=== PATIENT | female | born 1990 | race Two or more races ===

== ENCOUNTER 2023-08-27 17:30 | Emergency (ER) | payer OTHER ==
[~2023-08-27] VITALS: Ht 162.6 cm; Wt 84.8 kg
[2023-08-27] MEDS ORDERED: KETOROLAC TROMETHAMINE 30 MG VIAL IV ONE (18:00)
[2023-08-27] MEDS ORDERED: CEFTRIAXONE SODIUM 2,000 MG VIAL IV ONE (18:00)
[2023-08-27 18:32] LABS: HEMATOCRIT 35.7 % (36.0-45.00); HEMOGLOBIN 11.9 g/dL (12.0-15.00); MEAN CORPUSCULAR HEMOGLOBIN 28.6 pg (27.00-32.0); MEAN CORPUSCULAR HGB CONC 33.3 g/dl (32.0-36.0); PLATELET COUNT 223 K/uL (150-450); RED BLOOD COUNT 4.15 M/uL (4.00-6.00); RED CELL DISTRIBUTION WIDTH 14.3 % (11.5-14.5)
[2023-08-27 18:40] LABS: PH,URINE 6.5 (5.0-8.0); URINE APPEARANCE Clear; URINE BILIRRUBIN Negative (NEGATIVE); URINE BLOOD Trace; URINE COLOR Yellow; URINE GLUCOSE Negative (NEGATIVE); URINE LEUKOCYTE Small; URINE NITRATE Negative; URINE PROTEIN Negative (NEGATIVE); URINE UROBILINOGEN 0.2 E.U./dl
[2023-08-27 18:42] LABS: URINE EPITHELIAL CELLS 15.2 uL (0.0-38.8); URINE RBC 4.3 uL (0.0-20.8); URINE WBC 129.4 uL (0.0-23.2)
[2023-08-27 19:05] LABS: ALBUMIN 3.3 gm/dL (3.4-5.0); BILIRUBIN TOTAL 0.55 mg/dL (0.3-1.2); CALCIUM 9.3 mg/dL (8.5-10.1); CREATININE SERUM 0.81 mg/dL (0.55-1.02); GFR 80.94; GLOBULINA 5.4 G/DL (2.4-3.5); POTASSIUM 4.11 mEq/L (3.5-5.1); TOTAL PROTEIN 8.7 gm/dL (6.4-8.2)
[2023-08-27] MEDS ORDERED: TAMSULOSIN HCL 0.4 MG CAP PO ONE (19:45)
[2023-08-27] MEDS ORDERED: HYOSCYAMINE SULFATE 0.125 MG TAB.SUBL SL ONE (19:45)
== END 2023-08-27 22:38 | disposition home or self-care (01) ==
LOC: ER 17:30
PROVIDERS: General Practice
DX: N39.0 Urinary tract infection, site not specified (principal); R10.9 Unspecified abdominal pain; J45.909 Unspecified asthma, uncomplicated

== ENCOUNTER 2024-03-05 09:27 | Emergency (ER) | payer OTHER ==
[~2024-03-05] VITALS: Ht 162.6 cm; Wt 83.9 kg
[2024-03-05 09:40] VITALS: BP 106/72; O2SAT 100
[2024-03-05] MEDS ORDERED: CEFTRIAXONE SODIUM 1,000 MG VIAL IM STA (11:37)
[2024-03-05] MEDS ORDERED: METHYLPREDNISOLONE SOD SUCC 125 MG VIAL IM STA (11:37)
[2024-03-05] MEDS ORDERED: METHYLPREDNISOLONE SOD SUCC 125 MG VIAL ONE (12:09)
[2024-03-05] MEDS ORDERED: CEFTRIAXONE SODIUM 1,000 MG VIAL ONE (12:09)
== END 2024-03-05 12:27 | disposition home or self-care (01) ==
LOC: ER 09:28
DX: J06.9 Acute upper respiratory infection, unspecified (principal); Z20.822 Contact with and (suspected) exposure to COVID-19

== ENCOUNTER 2025-06-19 09:23 | Emergency (ER) | payer OTHER ==
[~2025-06-19] VITALS: Ht 162.6 cm; Wt 72.6 kg
[2025-06-19] MEDS ORDERED: DEXAMETHASONE SODIUM PHOSPHATE 4 MG/ML VIAL IV ONE (09:45)
[2025-06-19] MEDS ORDERED: KETOROLAC TROMETHAMINE 30 MG VIAL IU ONE (09:45)
[2025-06-19] MEDS ORDERED: LIDOCAINE HCL VISCOUS 20MG/ML BLIST 15ML MM ONE (09:45)
[2025-06-19] MEDS ORDERED: 0.9 % SODIUM CHLORIDE 500 ML IV ONE (09:45)
[2025-06-19] MEDS ORDERED: CEFTRIAXONE SODIUM 1,000 MG VIAL IV ONE (09:45)
[2025-06-19] MEDS ORDERED: DEXAMETHASONE SODIUM PHOSPHATE 4 MG/ML VIAL ONE (10:02)
[2025-06-19] MEDS ORDERED: KETOROLAC TROMETHAMINE 30 MG VIAL ONE (10:02)
[2025-06-19 11:14] LABS: BASO % 0.6 % (0.1-1.2); EOS # 0.08 (0.04-0.54); EOS % 0.6 % (0.7-7.0); LYMPH # 2.58 (1.18-3.74); LYMPH % 20.0 % (19.3-53.1); MEAN PLATELET VOLUME 11.30 fl (9.4-12.4); MONO # 1.01 (0.24-0.82); MONO % 7.8 % (4.7-12.5); NEUT # 9.08 (1.56-6.13); NEUT % 70.5 % (34.0-71.1); RED CELL DISTRIBUTION WIDTH 13.5 % (11.6-14.4)
[2025-06-19 11:30] LABS: COVID-19 AG NEGATIVE (NEGATIVE)
[2025-06-19 11:50] LABS: BUN CREA RATIO 17.0 (7.0-25.0); CREATININE SERUM 0.76 mg/dL (0.55-1.02); GFR 86.11; GLUCOSE FASTING 87.0 mg/dL (65-100); OSMOLALITY SERUM 281.0 MOSM/KG (275-295)
[2025-06-19 13:01] VITALS: BP 111/77; O2SAT 97
== END 2025-06-19 13:05 | disposition home or self-care (01) ==
LOC: ER 09:24
PROVIDERS: Emergency Medicine
DX: J02.8 Acute pharyngitis due to other specified organisms (principal); Z20.822 Contact with and (suspected) exposure to COVID-19